=== PATIENT | male | born 1960 | race Caucasian/White ===

== ENCOUNTER → 2021-06-23 | Outpatient (CLI) | payer BC ==
--- NOTE | 2021-06-23 20:59 | MR ---
MRI left elbow HISTORY: Left elbow pain Multiplanar multisequence imaging obtained through the left elbow and correlated to plain film 2020 Along the lateral epicondyles of the distal humerus the common extensor tendon shows abnormal increas ed signal, there is fluid signal present, no josef tear is present. There is no elbow joint effusion. Some local subcutaneous edema change is present. Biceps tendon shows a normal insertion. Muscle sign al is maintained. Bone marrow signal is normal. Articular cartilage signal is preserved. Triceps tend on shows a normal insertion. IMPRESSION: Findings consistent with lateral epicondylitis, difficult to exclude a partial tear
== END | disposition home or self-care (01) ==
LOC: RADMRIMAIN 18:19
PROVIDERS: ATTEND Orthopaedic Surgery
DX: M25.552 Pain in left hip (principal)

== ENCOUNTER 2021-07-28 09:56 | Day surgery (SDC) | payer BC ==
--- NOTE | 2021-07-26 10:34 | P.HPOR ---
History of Present Illness H&P Date: 07/26/21 Chief Complaint: Left Lateral Epicondylitis Subjective: This is a 61 year old male that presents today for initial evaluation regarding a 1.5 to 2 year history of ongoing left lateral elbow and forearm pain. Patient has been diagnosed with lateral epicondylitis in the past and has tried PT, bracing and has had several steroid injections over the past 2 years with the most recent being 9 months ago, which he states have started to be less effective than the initial injections he used to receive. He is an avid golfer and has not been able to golf without pain. He denies any other areas of pain and denies any prior injury. Physical Examination: LUE: AIN/PIN/Radial/Ulnar/Median motor intact. Radial/Ulnar/Median SILT. 2+/4 Radial/Ulnar pulses palpated. TTP over ECRB insertion. Pain with resisted wrist extension. Elbow stable to varus/valgus stress. Imaging: X-Rays of the left elbow taken from a previous visit demonstrate no acute osseus abnormality. MRI of the elbow demonstrate partial tearing and edematous changes seen in the ECRB origin at the lateral epicondyle. Impression: 1.) Left Lateral Epicondylitis Plan: Diagnosis and treatment options were discussed with the patient. He has long standing left lateral epicondylitis that has failed 1.5 years of conservative treatment and it is effecting his daily activities. Surgical debridement and release of ECRB tendon were discussed and patient wishes to proceed with surgery after discussing risks and benefits of surgery. The patient was agreeable with this plan of action and will follow up for surgery in the near future. He will obtain PCP clearance prior to surgery. -Cliff Solis DO Orthopedic Hand/Upper Extremity Surgeon Past Medical History Past Medical History: Diabetes Mellitus, Hyperlipidemia, Hypertension History of Any Multi-Drug Resistant Organisms: None Reported Additional Past Surgical History / Comment(s): COLONOSCOPY. RIGHT ANKLE SURGERY Past Anesthesia/Blood Transfusion Reactions: No Reported Reaction Past Psychological History: No Psychological Hx Reported Past Alcohol Use History: Occasional Past Drug Use History: None Reported Medications and Allergies Home Medications Medication Instructions Recorded Confirmed Type Multivit-Min/FA/Lycopene/Lut 1 tab PO DAILY 03/31/15 03/31/15 History [Centrum Silver Tablet] Pravastatin Sodium [Pravachol] 40 mg PO HS 03/31/15 03/31/15 History glipiZIDE [Glucotrol] 5 mg PO BID 03/31/15 03/31/15 History lisinopriL [Zestril] 5 mg PO QAM 03/31/15 03/31/15 History metFORMIN HCL [Glucophage] 500 mg PO BID 03/31/15 03/31/15 History Allergies Allergy/AdvReac Type Severity Reaction Status Date / Time No Known Allergies Allergy Verified 09/06/18 14:44 Physical Examination Osteopathic Statement: *. No significant issues noted on an osteopathic structural exam other than those noted in the History and Physical/Consult.
[2021-07-26 15:01] VITALS: BMI 25.5
[~2021-07-28 09:56] MED LIST: DEXAMETHASONE SOD PHOSPHATE 4 MG/ML 1 ML VIAL IV ONE; HYDROmorphone 0.5 MG/0.5 ML SYRINGE IVP PRN; LACTATED RINGERS 1,000 ML IV SCH; LIDOCAINE 1% (10MG/ML) FOR IV START INTRADERMA PRN; ONDANSETRON 4 MG/2 ML VIAL IVP ONE
[2021-07-28 11:04] VITALS: RESP 16; TEMP 97.8
[2021-07-28 11:17] LABS: Glucose,Whole Blood 163 mg/dL (75-99)
[2021-07-28] MEDS ORDERED: KETAMINE 10 MG/ML 20 ML VIAL ONE (11:48)
[2021-07-28] MEDS ORDERED: .fentaNYL (PF) 50 MCG/ML 2 ML AMP ONE (11:48)
[2021-07-28] MEDS ORDERED: PROPOFOL 10 MG/ML 20 ML VIAL IV ONE (11:48)
[2021-07-28] MEDS ORDERED: MIDAZOLAM 2 MG/2 ML VIAL ONE (11:48)
[2021-07-28] MEDS ORDERED: LIDOCAINE 1% INJ 10MG/ML (20 ML MDV) SQ ONE (12:00)
[2021-07-28] MEDS ORDERED: BUPIVACAINE (PF) 0.5% 30 ML VIAL SQ ONE (12:00)
[2021-07-28 14:01] VITALS: BP 133/75; PULSE 67
--- NOTE | 2021-07-28 21:46 | P.OP ---
Date of Procedure: 07/28/21 Preoperative Diagnosis: Left Lateral Epicondylitis Postoperative Diagnosis: Same. Procedure(s) Performed: Left lateral epicondylar debridement with tendon repair (29850) Anesthesia: MAC Surgeon: Cliff Solis Statistics Intern #1: Blas Rodriguez Estimated Blood Loss (ml): 5 Pathology: none sent Condition: stable Disposition: PACU Description of Procedure: This is a 61 year old male who presents today for surgical intervention for his left lateral epicondylitis that has failed extensive conservative treatment. Risks and benefits of surgery were discussed with the patient including bleeding, damage to surrounding tissue, infection, need for further surgery as well as risks of anesthesia including pulmonary embolism and even and the patient wished to proceed with surgical intervention. The patient was seen in the pre-operative area by myself. Consent and H&P were completed and updated. The correct extremity was marked in the pre-operative area by myself and all other questions were answered. Operative Narrative: The patient was brought to the operating room by the department of anesthesia. They remained on the portable stretcher and a rolling hand table was brought to the side of the operative extremity. Pre-operative time out was performed indicating the correct patient, procedure and laterality. All in the room agreed. Pre-operative antibiotics were given prior to skin incision. The patient was then drifted off to sleep by the department of anesthesia. A 50:50 mixture of 1% lidocaine and 0.5 % bupivicaine was then injected around the area of the lateral epicondyle, 10cc total. A nonsterile tourniquet was then applied to the operative extremity and the left upper extremity was then prepped and draped in normal sterile fashion. The operative extremity was the exsanguinated with an esmarch bandage and the tourniquet was inflated to 250mmHg. A longitudinal skin incision was made with a 15 blade scalpel overlying the lateral epicondyle with extension distally. Blunt dissection was taken down to t he common extensor tendon origin. This was sharply incised longitudinal and sen retractors were then placed deep to the common extensor tendon which revealed the extensively inflamed and degenerative ECRB tendon origin. The degenerative tissue was then sharply excised. The lateral epicondyle was the decorticated with a rongeur down to bleeding bone taking care to remain anterior to the origin of the LUCL. The wound was then irrigated. A side to side tendon repair was performed utilizing 2-0 Vicryl suture incorporating the common extensor tendon. The elbow as then stressed with varus and valgus stress and was stable at all degrees of motion. Closure was then performed with 4-0 monocryl suture. A sterile dressing consisting of mastisol, steri strips, 4x4s, webril and an asael wrap and sling was applied. Tourniquet was let down at 26 minutes and the hand had immediate normal perfusion. The patient was then woken by the department of anesthesia and transferred to PACU in stable condition. Cliff Solis D.O. Orthopedic Hand/Upper Extremity Surgeon
== END 2021-07-28 14:01 | disposition home or self-care (01) ==
LOC: OR 09:56
PROVIDERS: ATTEND Orthopaedic Surgery Hand Surgery
DX: M77.12 Lateral epicondylitis, left elbow (principal); E11.9 Type 2 diabetes mellitus without complications; F32.A Depression, unspecified; I10 Essential (primary) hypertension; F41.9 Anxiety disorder, unspecified; Z87.81 Personal history of (healed) traumatic fracture; Z82.49 Family history of ischemic heart disease and other diseases of the circulatory system; E29.1 Testicular hypofunction; E78.5 Hyperlipidemia, unspecified; Z98.890 Other specified postprocedural states; Z79.84 Long term (current) use of oral hypoglycemic drugs; Z79.890 Hormone replacement therapy; Z79.899 Other long term (current) drug therapy; Z88.8 Allergy status to other drugs, medicaments and biological substances; J30.89 Other allergic rhinitis
CPT/HCPCS: 24359; J2250; J1100; J0690; J2405; J2001; J3010; J2704

== ENCOUNTER → 2022-12-06 | Outpatient (CLI) | payer BC ==
--- NOTE | 2022-12-08 05:36 | MR ---
EXAMINATION TYPE: MR knee LT wo con DATE OF EXAM: 12/06/2022 COMPARISON: Outside left knee x-ray July 27, 2022 HISTORY: Left inner knee pain for one year. TECHNIQUE: Multiplanar, multisequence images of the knee is performed without IV contrast. FINDINGS: MEDIAL MENISCUS: Anterior and posterior horns are intact without tear. LATERAL MENISCUS: Anterior and posterior horns are intact without tear. CRUCIATE LIGAMENTS: The anterior and posterior cruciate ligaments are intact and unremarkable. COLLATERAL LIGAMENTS: The medial collateral ligament and lateral collateral ligament complex are inta ct and unremarkable. EXTENSOR MECHANISM: Visualized quadriceps and patellar tendons are intact. EFFUSION: No significant suprapatellar joint effusion. POPLITEAL CYST: No popliteal/damon cyst. TRICOMPARTMENT SPACES: Mild tricompartment joint space loss. No significant spurring. CARTILAGE: Tricompartmental articular cartilage is preserved. BONE MARROW SIGNAL: No focal abnormal marrow signal is appreciated. OTHER: No additional significant abnormality is appreciated. IMPRESSION: No meniscal or ligamentous tear is seen.
== END | disposition home or self-care (01) ==
LOC: RADMRIMAIN 18:54
PROVIDERS: ATTEND Orthopaedic Surgery
DX: M25.562 Pain in left knee (principal)

== ENCOUNTER → 2023-10-02 | Outpatient (CLI) | payer BC ==
--- NOTE | 2023-10-09 11:44 | MR ---
EXAMINATION TYPE: MR elbow RT wo con DATE OF EXAM: 10/02/2023 COMPARISON: Radiographs 01/17/2022 HISTORY: 63-year-old male Right elbow pain x1.5 years, Hx of cortisone injection TECHNIQUE: Multiplanar, multisequence images of the right elbow were obtained without IV contrast. FINDINGS: The distal biceps tendon and triceps insertion are both intact. Large intrasubstance tear at the common extensor tendon origin measuring up to 1.5 cm long by 8 mm AP by 4 mm wide. There may be an underlying small partial tear at the humeral attachment of the RCL. The common flexor tendon origin pronator mass as well as the underlying UCL appear intact. Both radiocapitellar and ulnar trochlear joints appear intact. Small physiologic elbow joint effusion . No acute or healing fracture. No other significant soft tissue abnormality is seen. IMPRESSION: 1. Large intrasubstance tear measuring 1.5 x 0.8 cm at the common extensor tendon origin. 2. There may be an underlying small partial tear at the humeral attachment of the RCL.
== END | disposition home or self-care (01) ==
LOC: RADMRIMAIN 18:48
PROVIDERS: ATTEND Orthopaedic Surgery Hand Surgery
DX: M24.821 Other specific joint derangements of right elbow, not elsewhere classified (principal)

== ENCOUNTER 2023-11-29 07:27 | Day surgery (SDC) | payer BC ==
[2023-11-24 12:16] VITALS: BMI 23.7
--- NOTE | 2023-11-27 13:01 | P.HPOR ---
History of Present Illness H&P Date: 11/27/23 Subjective: This is a 63 year old male that presents today for follow up evaluation regarding right lateral epicondylitis. He denies any particular injury but has a history of left lateral epicondylitis that required surgery back in July 2021 which his doing well from. He has pain with lifting the wrist and pain when golfing. He denies any paresthesias. He has tried NSAIDs and ice which have provided little relief. He had a steroid injection 6 months prior which provided relief of his symptoms but they have returned. His left surgical side is minimally symptomatic. Physical Examination: RUE: AIN/PIN/Radial/Ulnar/Median motor intact. Radial/Ulnar/Median SILT. 2+/4 Radial/Ulnar pulses palpated. 5/5 APB, 5/5 FDI. Negative Finkelsteins, negative CMC grind, negative Durkan's compression. TTP over ECRB origin. Pain with resisted wrist extension. Elbow stable to varus/valgus stress. Elbow ROM 0-130. Imaging: MRI of the right elbow performed on 10/02/23 demonstrates a large intrasubstance tear of the common extensor origin measuring 1.5 x 0.8 cm. Possible small underlying tear of the RCL attachment. Impression: 1.) Right lateral epicondylitis Plan: Diagnosis and treatment options were discussed with the patient. He has failed over 1.5 years of conservative treatment for this right elbow and wishes to pursue a right lateral epicondylar debridement with subsequent repair of the common extensor tendon at the level of the elbow. Risks and benefits of surgery including bleeding, infection, damage to surrounding tissue, need for further surgery, residual numbness were discussed and the patient wished to go forward with surgery. CC: Dr. Orion Solis DO Orthopedic Hand/Upper Extremity Surgeon Past Medical History Past Medical History: Cancer, Diabetes Mellitus, Hyperlipidemia, Hypertension Additional Past Medical History / Comment(s): 05/2023 History of Any Multi-Drug Resistant Organisms: None Reported Past Surgical History: Orthopedic Surgery Additional Past Surgical History / Comment(s): COLONOSCOPY. RIGHT ANKLE SURGERY. LT ELBOW SX. SURGERY FOR PD 2022 WITH COURY. MELANOMA REMOVED FROM LT ARM -2022 Past Anesthesia/Blood Transfusion Reactions: No Reported Reaction Smoking Status: Former smoker - Past Family History Brother(s) Family Medical History: Cancer Medications and Allergies Home Medications Medication Instructions Recorded Confirmed Type Multivit-Min/FA/Lycopene/Lut 1 tab PO DAILY 03/31/15 11/24/23 History [Centrum Silver Tablet] Pravastatin Sodium [Pravachol] 40 mg PO HS 03/31/15 11/24/23 History lisinopriL [Zestril] 5 mg PO QAM 03/31/15 11/24/23 History metFORMIN HCL [Glucophage] 500 mg PO QAM 03/31/15 11/24/23 History Acetaminophen [Tylenol Extra 1,000 mg PO DAILY PRN 07/26/21 11/24/23 History Strength] Empagliflozin [Jardiance] 25 mg PO DAILY 11/24/23 11/24/23 History Escitalopram [Lexapro] 5 mg PO DAILY 11/24/23 11/24/23 History Tirzepatide [Mounjaro] 5 mg SQ TH 11/24/23 11/24/23 History metFORMIN HCL [Glucophage] 1,000 mg PO HS 11/24/23 11/24/23 History Allergies Allergy/AdvReac Type Severity Reaction Status Date / Time No Known Allergies Allergy Verified 11/24/23 11:51 Physical Examination Osteopathic Statement: *. No significant issues noted on an osteopathic structural exam other than those noted in the History and Physical/Consult.
[~2023-11-29 07:27] MED LIST changes: -DEXAMETHASONE SOD PHOSPHATE 4 MG/ML 1 ML VIAL IV ONE; -LACTATED RINGERS 1,000 ML IV SCH; -LIDOCAINE 1% (10MG/ML) FOR IV START INTRADERMA PRN; -ONDANSETRON 4 MG/2 ML VIAL IVP ONE; +Pre Op ABX Message 1 EACH MISC MISCELLANE ONE; +fentaNYL (PF) 50 MCG/ML 2 ML AMP IV PRN
[2023-11-29 08:45] LABS: Glucose,Whole Blood 118 mg/dL (70-110)
[2023-11-29] MEDS: ONDANSETRON 4 MG/2 ML VIAL IVP ONE (08:51)
[2023-11-29] MEDS: LACTATED RINGERS 1,000 ML IV SCH (08:51)
[2023-11-29] MEDS: MIDAZOLAM 2 MG/2 ML VIAL IVP ONE (08:52)
[2023-11-29] MEDS ORDERED: PROPOFOL 10 MG/ML 20 ML VIAL IV ONE (09:05)
[2023-11-29] MEDS ORDERED: SUCCINYLCHOLINE CHLORIDE 200 MG/10 ML VIAL IV ONE (09:05)
[2023-11-29] MEDS ORDERED: LIDOCAINE 1% INJ 10MG/ML (20 ML MDV) ONE (09:05)
[2023-11-29] MEDS ORDERED: MIDAZOLAM 2 MG/2 ML VIAL ONE (09:05)
[2023-11-29] MEDS ORDERED: PHENYLEPHRINE 10 MG/ML VIAL ONE (09:05)
[2023-11-29] MEDS: BUPIVACAINE (PF) 0.5% 30 ML VIAL SQ ONE ×2 (09:25→09:39)
--- NOTE | 2023-11-29 10:01 | P.OP ---
Date of Procedure: 11/29/23 Preoperative Diagnosis: Right lateral epicondylitis Postoperative Diagnosis: Right lateral epicondylitis Procedure(s) Performed: 1.) Right lateral epicondylar debridement with repair of extensor tendon at level of elbow Anesthesia: ROHIT Surgeon: Cliff Solis [employer] Operations Supervisor #1: Blas Rodriguez Pathology: none sent Condition: stable Disposition: PACU Description of Procedure: This is a 63 year old male who presents today for surgical intervention for right lateral epicondylitis that has failed extensive conservative treatment. Risks and benefits of surgery were discussed with the patient including bleeding, damage to surrounding tissue, infection, need for further surgery as well as risks of anesthesia including pulmonary embolism and even and the patient wished to proceed with surgical intervention. The patient was seen in the pre-operative area by myself. Consent and H&P were completed and updated. The correct extremity was marked in the pre-operative area by myself and all other questions were answered. Operative Narrative: The patient was brought to the operating room by the department of anesthesia. They remained on the portable stretcher and a rolling hand table was brought to the side of the operative extremity. Pre-operative time out was performed indicating the correct patient, procedure and laterality. All in the room agreed. Pre-operative antibiotics were given prior to skin incision. The patient was then drifted off to sleep by the department of anesthesia. A nonsterile tourniquet was then applied to the operative extremity and the left upper extremity was then prepped and draped in normal sterile fashion. The operative extremity was the exsanguinated with an esmarch bandage and the tourniquet was inflated to 250mmHg. A longitudinal skin incision was made with a 15 blade scalpel overlying the lateral epicondyle with extension distally. Blunt dissection was taken down to the common extensor tendon origin. This was sharply incised longitudinal and sen retractors were then placed deep to the common extensor tendon which revealed the extensively inflamed and degenerative ECRB tendon origin. The degenerative tissue was then sharply excised. The lateral epicondyle was the decorticated with a rongeur down to bleeding bone taking care to remain anterior to the origin of the LUCL. The wound was then irrigated. A side to side tendon repair was performed utilizing 2-0 Vicryl suture incorporating the common extensor tendon. The elbow as then stressed with varus and valgus stress and was stable at all degrees of motion. Closure was then performed with 4-0 monocryl suture. A 50:50 mixture of 1% lidocaine and 0.5 % bupivicaine was then injected around the area of the lateral epicondyle, 15cc total. A sterile dressing consisting of steri strips, 4x4s, webril, posterior plaster splint and sling was applied. Tourniquet was let down and the hand had immediate normal perfusion. The patient was then woken by the department of anesthesia and transferred to PACU in stable condition. Blas YAP was present to assist in manipulation of the extremity and retraction. Cliff Solis D.O. Orthopedic Hand/Upper Extremity Surgeon
[2023-11-29 10:30] LABS: Glucose,Whole Blood 105 mg/dL (70-110)
[2023-11-29 10:33] VITALS: TEMP 97
[2023-11-29 11:16] VITALS: BP 138/76; PULSE 72
[2023-11-29 11:18] VITALS: RESP 20
== END 2023-11-29 11:36 | disposition home or self-care (01) ==
LOC: OR 07:27
PROVIDERS: ATTEND Orthopaedic Surgery Hand Surgery
DX: M77.11 Lateral epicondylitis, right elbow (principal); E11.9 Type 2 diabetes mellitus without complications; E78.5 Hyperlipidemia, unspecified; I10 Essential (primary) hypertension; Z79.84 Long term (current) use of oral hypoglycemic drugs; Z85.820 Personal history of malignant melanoma of skin; Z87.891 Personal history of nicotine dependence; Z79.899 Other long term (current) drug therapy
CPT/HCPCS: 24358; J2250; J0330; J2405; J2001; J2704; J2371; J0665

== ENCOUNTER → 2025-01-31 | Day surgery (SDC) | payer BC ==
[2025-01-30 08:19] VITALS: BMI 21.2
[~2025-01-31] MED LIST changes: -HYDROmorphone 0.5 MG/0.5 ML SYRINGE IVP PRN; +PROPOFOL 10 MG/ML 20 ML VIAL IV ONE; -Pre Op ABX Message 1 EACH MISC MISCELLANE ONE; -fentaNYL (PF) 50 MCG/ML 2 ML AMP IV PRN
[2025-01-31 06:50] VITALS: TEMP 97
[2025-01-31 07:00] LABS: Glucose,Whole Blood 111 mg/dL (70-110)
[2025-01-31] MEDS: IV FLUID CONTINUATION 1,000 ML IV ONE (07:01)
[2025-01-31] MEDS: LACTATED RINGERS 1,000 ML IV SCH (07:02)
--- NOTE | 2025-01-31 07:40 | P.PCN ---
Date of Procedure: 01/31/25 Procedure(s) Performed: BRIEF HISTORY: Patient is a 64-year-old pleasant white male scheduled for an elective colonoscopy as a part of screening for prior history of colon polyps. According to the patient his last colonoscopy was approximately 5 years ago. PROCEDURE PERFORMED: Colonoscopy. PREOPERATIVE DIAGNOSIS: Screening for history of colon polyps. IV sedation per Anesthesia. PROCEDURE: After informed consent was obtained, the patient, was brought into the endoscopy unit. IV sedation was administered by Anesthesia under continuous monitoring. Digital rectal examination was normal. Initially the Olympus CF-160 flexible video colonoscope was then inserted in the rectum, gradually advanced into the cecum without any difficulty. Careful examination was performed as the scope was gradually being withdrawn. Ileocecal valve and the appendiceal orifice were visualized and appeared normal. Prep was fair. The radiation was performed.. Mucosa of the cecum, ascending colon, transverse colon, descending colon, sigmoid colon, and rectum appeared normal. Scattered sigmoid diverticulosis. Retroflexion was performed in the rectum and small internal hemorrhoid were seen. The patient tolerated the procedure well. IMPRESSION: Normal-appearing colon from rectum to cecum with no evidence of colorectal neoplasia. Scattered sigmoid diverticulosis Small internal hemorrhoids RECOMMENDATIONS: Findings of this examination were discussed with the patient as well as his family.. He was advised to have repeat screening colonoscopy in 10 years.
[2025-01-31 08:15] VITALS: BP 113/73; PULSE 81; RESP 16
== END ==
LOC: ORWHC2ENDO 06:06
PROVIDERS: ATTEND Internal Medicine Gastroenterology
DX: Z12.11 Encounter for screening for malignant neoplasm of colon (principal); K57.30 Diverticulosis of large intestine without perforation or abscess without bleeding; K64.8 Other hemorrhoids; I10 Essential (primary) hypertension; E78.5 Hyperlipidemia, unspecified; E11.9 Type 2 diabetes mellitus without complications; Z79.84 Long term (current) use of oral hypoglycemic drugs; Z79.899 Other long term (current) drug therapy; Z86.0100 Personal history of colon polyps, unspecified; Z85.828 Personal history of other malignant neoplasm of skin
CPT/HCPCS: 45378; J2704